=== PATIENT | female | born 1975 | race Caucasian/White ===

== ENCOUNTER → 2017-03-19 | Emergency (ER) | payer BC ==
[~2017-03-19] VITALS: Ht 162.6 cm; Wt 68.9 kg
[~2017-03-19] MED LIST: CIPRO500 MG PO; CLINDAMYCIN HC150 MG PO; HYDROXYZINE HCL25 MG PO; IBUPROFEN 600 MG TAB PO STA; IBUPROFEN200 MG PO; PROZAC20 MG; ULTRAM50 MG PO; [UNRECOGNIZED DRUG - OTHER] PO
== END | disposition home or self-care (01) ==
LOC: FSED 22:40
DX: M54.2 Cervicalgia (principal); S16.1XXA Strain of muscle, fascia and tendon at neck level, initial encounter; M54.5 Low back pain; S39.012A Strain of muscle, fascia and tendon of lower back, initial encounter; M62.838 Other muscle spasm; V43.52XA Car driver injured in collision with other type car in traffic accident, initial encounter; Y92.488 Other paved roadways as the place of occurrence of the external cause
CPT/HCPCS: 99283

== ENCOUNTER 2017-04-20 14:44 | Inpatient (IN) | payer BC ==
[~2017-04-20] VITALS: Ht 162.6 cm; Wt 67.3 kg
[~2017-04-20 14:44] MED LIST changes: -CIPRO500 MG PO; -CLINDAMYCIN HC150 MG PO; -HYDROXYZINE HCL25 MG PO; -IBUPROFEN 600 MG TAB PO STA; -IBUPROFEN200 MG PO; -ULTRAM50 MG PO; -[UNRECOGNIZED DRUG - OTHER] PO
[2017-04-20] MEDS ORDERED: MORPHINE SULFATE 2 MG/ML SYR IV STA (15:21)
[2017-04-20] MEDS ORDERED: [UNRECOGNIZED DRUG - OTHER] PO (15:31)
[2017-04-20] MEDS ORDERED: IBUPROFEN200 MG PO (15:31)
[2017-04-20] MEDS ORDERED: ULTRAM50 MG PO (15:31)
[2017-04-20] MEDS ORDERED: CLINDAMYCIN HC150 MG PO (15:31)
[2017-04-20] MEDS ORDERED: HYDROXYZINE HCL25 MG PO (15:31)
[2017-04-20] MEDS ORDERED: SODIUM CHLORIDE 0.9% 1000ML 1,000 ML IV SCH (16:15)
[2017-04-20] MEDS ORDERED: CLINDAMYCIN 300MG 50 ML IV SCH (16:15)
[2017-04-20] MEDS ORDERED: KETOROLAC TROMETHAMINE 30 MG/ML VIAL IV STA (19:06)
[2017-04-20 21:22] VITALS: BP 143/73
[2017-04-20 21:24] VITALS: BP 143/73
[2017-04-20 21:39] VITALS: BP 143/73
[2017-04-21] VITALS (8 sets, daily range): BP systolic 101–146; BP diastolic 59–76
[2017-04-21] MEDS ORDERED: MORPHINE SULFATE 2 MG/ML SYR IV PRN (07:30)
[2017-04-21] MEDS ORDERED: LEVOFLOXACIN 500MG/D5W 100ML 100 ML IV SCH (07:30)
[2017-04-21] MEDS ORDERED: SODIUM CHLORIDE 0.9% 1000ML 1,000 ML IV ONE (07:45)
[2017-04-21 08:50] LABS: BASOPHILS % 0.3 % (0.0-1.0); EOSINOPHILS # (AUTO) 0.1 (0.0-0.4); EOSINOPHILS % 0.9 % (0.0-6.0); HEMATOCRIT 33.3 % (34.2-44.1); HEMOGLOBIN 11.4 g/dL (12.0-16.0); LYMPHOCYTES # (AUTO) 1.1 (1.0-3.2); LYMPHOCYTES % 11.6 % (18.0-39.1); MEAN CORPUSCULAR HEMOGLOBIN 31.3 pg (28-32); MEAN CORPUSCULAR HGB CONC 34.2 g/dL (31-35); MEAN CORPUSCULAR VOLUME 91.5 fL (81-99); MONOCYTES # (AUTO) 0.8 (0.2-0.8); MONOCYTES % 8.2 % (4.4-11.3); NEUTROPHILS # (AUTO) 7.3 (2.1-6.9); NEUTROPHILS % 78.8 % (38.7-80.0); PLATELET COUNT 230 x10e3/uL (140-360); RED BLOOD COUNT 3.64 x10e6/uL (3.6-5.1); RED CELL DISTRIBUTION WIDTH 12.1 % (11.7-14.4)
[2017-04-21 09:03] LABS: ALANINE AMINOTRANSFERASE 19 IU/L (0-55); ALBUMIN 2.9 g/dL (3.5-5.0); ALBUMIN/GLOBULIN RATIO 0.9 (0.8-2.0); ALKALINE PHOSPHATASE 45 IU/L (40-150); ANION GAP 12.1 mmol/L (8-16); BLOOD UREA NITROGEN 8 mg/dL (7-26); BUN/CREATININE RATIO 12 (6-25); CALCIUM 8.4 mg/dL (8.4-10.2); CARBON DIOXIDE 24 mmol/L (22-29); CHLORIDE 101 mmol/L (98-107); CREATININE, SERUM 0.68 mg/dL (0.57-1.11); EST GLOMERULAR FILTRATION RATE > 60 ML/MIN (60-); GLUCOSE 121 mg/dL (74-118); POTASSIUM 4.1 mmol/L (3.5-5.1); SODIUM 133 mmol/L (136-145)
[2017-04-21] MEDS: VANCOMYCIN 1GM/NS 250 ML 250 ML IV SCH ×2 (10:02→20:38)
[2017-04-21] MEDS: ACETAMINOPHEN 1000 MG/100 ML IV PRN (12:38)
[2017-04-21] MEDS: PIPER-TAZ 3.375 GM 50 ML IV SCH ×2 (13:04→17:31)
[2017-04-21] MEDS ORDERED: CLINDAMYCIN 300MG 50 ML IV SCH (14:00)
--- NOTE | 2017-04-21 17:20 | Consultation ---
DATE OF CONSULTATION: April 21, 2017 REASON FOR CONSULTATION: Abscess of tooth, infection of face. HISTORY OF PRESENT ILLNESS: This patient, who is a 41-year-old white female with history of hypothyroidism, history of endometriosis, history of anxiety, history of depression, has been having a problem with her tooth for the last week or so. She went to the 1st dentist who gave her oral antibiotic, but it was painful and getting progressively worse. She went to another dentist, and they were supposed to do an extraction a few days later, but there was so much infection she was given oral antibiotic. She went to bed yesterday and woke up, and there were significant swelling and redness in her face as well as drainage from inside the mouth. The patient came to the emergency room where she was admitted. The patient was on clindamycin and tramadol before she came here. PAST MEDICAL HISTORY: Hypothyroidism, anxiety and depression. PAST SURGICAL HISTORY: She denies. SOCIAL HISTORY: There is no smoking, drug abuse or alcohol abuse. FAMILY HISTORY: Noncontributory. REVIEW OF SYSTEMS HEENT: There is no headache, visual changes, hearing changes or hearing loss, but there is swelling of the right side of the face in the upper part. Also, there is tooth pain, which is severe. NECK: No complaints. JOINTS: There is no erythema or edema. SKIN: There is no rash, but there is hirsutism. PULMONARY: Negative. CARDIAC: Negative. PHYSICAL EXAMINATION GENERAL: She is currently alert and oriented, does not seem to be in acute distress. VITALS: Stable, currently afebrile. HEENT: She is not icteric. There are significant erythema and swelling of her face on the right side. She has poor dentition. There is swelling in the gum noted mainly in the upper lip. Patient was not able to open her mouth because of the pain and swelling. NECK: Supple. CHEST: Clear. COR: S1 and S2. No murmur. ABDOMEN: Soft. Bowel sounds are present. No tenderness. No hepatosplenomegaly. EXTREMITIES: No edema. SKIN: There is no rash. Hirsutism was noted. ALLERGIES: PENICILLIN, BUT SHE TOOK KEFLEX BEFORE AND SHE HAD NO PROBLEM. IMPRESSION: Cellulitis of the face secondary to tooth abscess. Failed oral antibiotic. Will put her on Zosyn and vancomycin. Discontinue clindamycin. Local heat pad. Will observe over the next 24 to 48 hours. She is aware that she needs tooth extraction, and she is planning on it once her infection gets better. We will see how she is going to do over the next 48 hours. Will follow with you. Job#: [id number]
[2017-04-22] VITALS (7 sets, daily range): BP systolic 103–131; BP diastolic 55–70
[2017-04-22] MEDS: PIPER-TAZ 3.375 GM 50 ML IV SCH ×4 (00:23→17:23)
[2017-04-22] MEDS: ACETAMINOPHEN 1000 MG/100 ML IV PRN (00:24)
[2017-04-22] MEDS ORDERED: SODIUM CHLORIDE 0.9% 250ML 250 ML ONE (09:00)
[2017-04-22] MEDS: VANCOMYCIN 1GM/NS 250 ML 250 ML IV SCH ×2 (09:03→21:00)
[2017-04-22] MEDS: HYDROXYZINE HCL 25 MG TAB PO SCH ×3 (12:44→17:39)
[2017-04-22] MEDS: TRAMADOL HCL 50 MG TAB PO PRN (12:44)
[2017-04-22] MEDS: IBUPROFEN 600 MG TAB PO SCH (15:40)
[2017-04-22] MEDS ORDERED: HYDROXYZINE HCL 25 MG TAB PO PRN (17:45)
[2017-04-22] MEDS ORDERED: ONDANSETRON HCL INJ 2 MG/ML VIAL IV PRN (18:00)
[2017-04-23] VITALS (7 sets, daily range): BP systolic 98–130; BP diastolic 57–70
[2017-04-23] MEDS ORDERED: SODIUM CHLORIDE 0.9% 250ML 250 ML IV PRN (00:15)
--- NOTE | 2017-04-23 00:21 | Progress Note ---
DATE: April 22, 2017 Ms. Meade is doing better. The swelling in the teeth and the jaw is getting better. She has no new complaints. PHYSICAL EXAMINATION VITAL SIGNS: Temperature 97.4, heart rate 72, respirations 18, blood pressure 126/69. She has no fever. Her T-max 101.3 at midnight. HEENT: She is normocephalic, not icteric. The swelling and the erythema on the left side of the jaw is getting better. NECK: Supple. No JVD. No lymphadenopathy or thyromegaly. CHEST: Clear bilaterally. COR: S1, S2. No murmur. ABDOMEN: Soft. Bowel sounds are present. No tenderness. EXTREMITIES: No edema. LABS: White count 9.25, hemoglobin 11. Her sodium 133, potassium 4.4, and creatinine 0.68. No cultures. IMPRESSION AND PLAN: Tooth abscess with face cellulitis and face abscess, seem to be getting better. Continue to drain . Continue with vancomycin, continue with Zosyn. Local heat pad. Will re-assess in the morning. Job#: [id number]
[2017-04-23] MEDS ORDERED: SODIUM CHLORIDE 0.9% 250ML 250 ML ONE (00:24)
[2017-04-23] MEDS: PIPER-TAZ 3.375 GM 50 ML IV SCH ×5 (00:40→23:55)
[2017-04-23] MEDS: VANCOMYCIN 1GM/NS 250 ML 250 ML IV SCH (07:42)
[2017-04-23] MEDS: THYROID 60 MG TAB PO SCH (08:38)
[2017-04-23] MEDS: FLUOXETINE HCL 20 MG CAP PO SCH (09:19)
[2017-04-23] MEDS: TRAMADOL HCL 50 MG TAB PO PRN (12:13)
[2017-04-23] MEDS: IBUPROFEN 600 MG TAB PO SCH (17:55)
[2017-04-23] MEDS: VANCOMYCIN HCL 1.25 GM in SODIUM CHLORIDE 0.9% 250ML 250 ML IV SCH (20:25)
[2017-04-24] VITALS (9 sets, daily range): BP systolic 99–123; BP diastolic 57–61
[2017-04-24] MEDS: PIPER-TAZ 3.375 GM 50 ML IV SCH ×4 (05:34→23:32)
[2017-04-24] MEDS ORDERED: SODIUM CHLORIDE 0.9% 250ML 250 ML ONE (09:27)
[2017-04-24] MEDS: THYROID 60 MG TAB PO SCH (09:29)
[2017-04-24] MEDS: VANCOMYCIN HCL 1.25 GM in SODIUM CHLORIDE 0.9% 250ML 250 ML IV SCH ×2 (09:29→20:08)
[2017-04-24] MEDS: FLUOXETINE HCL 20 MG CAP PO SCH (09:29)
[2017-04-24] MEDS: TRAMADOL HCL 50 MG TAB PO PRN (09:30)
--- NOTE | 2017-04-24 15:59 | Consultation ---
DATE OF CONSULTATION: April 23, 2017 HOSPITAL CONSULTATION HISTORY OF PRESENT ILLNESS: I discovered this 41-year-old woman on my and was not called for consultation. She presented to the emergency department with a progressive sore painful tooth and neck swelling, was found to have facial abscess/cellulitis of dental origin. Her hospital course was marked by slow progress after initiation of IV antibiotic therapy, had spontaneous drainage from the right lower jaw tooth. She reports she is able to open her mouth significantly better and overall has significantly less pain. Her history of present illness is reviewed in detail in the chart as above. Her past medical history and past surgical history are noncontributory. EXAMINATION: There is swelling in the neck, significantly worse on the right side. There is no palpable cervical adenopathy. There is no overlying skin changes. She has a 1 cm draining lesion in the right mandible. There is no palpable abscess formation. ASSESSMENT: Neck cellulitis of dental origin with no clinically identified drainable abscess, responding to current therapy. PLAN: No otolaryngology changes with therapy. Job#: [id number]
[2017-04-25 00:48] VITALS: BP 116/55
[2017-04-25 04:00] VITALS: BP 116/63
[2017-04-25] MEDS: PIPER-TAZ 3.375 GM 50 ML IV SCH (05:18)
[2017-04-25] MEDS ORDERED: CIPRO500 MG PO (06:22)
[2017-04-25 08:22] VITALS: BP 110/53
[2017-04-25 08:38] VITALS: BP 142/60
[2017-04-25] MEDS: THYROID 60 MG TAB PO SCH (08:38)
[2017-04-25] MEDS: FLUOXETINE HCL 20 MG CAP PO SCH (08:38)
[2017-04-25] MEDS: VANCOMYCIN HCL 1.25 GM in SODIUM CHLORIDE 0.9% 250ML 250 ML IV SCH (08:38)
== END 2017-04-25 12:12 | disposition home or self-care (01) | DRG 603 ==
LOC: FSED 14:44 → IMCU 20:40 → OBSVTOIN 04-22 05:43 → MED/SURG 04-22 10:59
PROVIDERS: ADMIT Internal Medicine; ATTEND Internal Medicine
DX: L02.01 Cutaneous abscess of face (principal); L02.11 Cutaneous abscess of neck; K04.7 Periapical abscess without sinus; E03.9 Hypothyroidism, unspecified; F41.8 Other specified anxiety disorders; K02.9 Dental caries, unspecified; Z88.0 Allergy status to penicillin
CPT/HCPCS: 36415; 80053; 80202; 85025; 99284; G0378; J1885; J1956; J2270; J2405; J2543; J3370; J3410; J7030; J7050

== ENCOUNTER 2017-08-18 11:46 | Emergency (ER) | payer BC ==
[~2017-08-18] VITALS: Ht 160 cm; Wt 72.6 kg
[~2017-08-18 11:46] MED LIST changes: +CIPRO500 MG PO; +CLINDAMYCIN HC150 MG PO; +HYDROXYZINE HCL25 MG PO; +IBUPROFEN200 MG PO; +ULTRAM50 MG PO; +[UNRECOGNIZED DRUG - OTHER] PO
== END 2017-08-18 12:35 | disposition home or self-care (01) ==
LOC: FSED 11:46
DX: L02.31 Cutaneous abscess of buttock (principal)
CPT/HCPCS: 99283

== ENCOUNTER 2020-06-12 19:10 | Emergency (ER) | payer BC ==
[~2020-06-12] VITALS: Ht 160 cm; Wt 78.0 kg
[2020-06-12] MEDS ORDERED: SODIUM CHLORIDE 0.9% 1000ML 1,000 ML IV STA (19:25)
[2020-06-12] MEDS ORDERED: KETOROLAC TROMETHAMINE 30 MG/ML VIAL IV ONE (19:30)
[2020-06-12] MEDS ORDERED: DIPHENHYDRAMINE HCL INJ 50 MG/ML VIAL IV ONE (19:30)
[2020-06-12] MEDS ORDERED: FAMOTIDINE 20 MG/2 ML VIAL IV ONE ×2 (19:30→20:04)
[2020-06-12] MEDS ORDERED: DEXAMETHASONE SOD PHOS INJ 4 MG/ML VIAL IV ONE (19:30)
[2020-06-12] MEDS ORDERED: PROMETHAZINE 25MG/ NS 50ML (IV) IV ONE (19:30)
[2020-06-12] MEDS ORDERED: FAMOTIDINE20 MG PO (19:33)
[2020-06-12] MEDS ORDERED: PROMETHAZINE HC25 M1 PO (19:33)
[2020-06-12] MEDS ORDERED: ESGIC 50-325-41 EACH PO (19:33)
[2020-06-12] MEDS ORDERED: DIPHENHYDRAMINE HCL INJ 50 MG/ML VIAL ONE (20:03)
[2020-06-12] MEDS ORDERED: KETOROLAC TROMETHAMINE 30 MG/ML VIAL ONE (20:03)
[2020-06-12] MEDS ORDERED: SODIUM CHLORIDE 0.9% 1000ML 1,000 ML ONE (20:03)
[2020-06-12] MEDS ORDERED: DEXAMETHASONE SOD PHOS INJ 4 MG/ML VIAL ONE (20:03)
[2020-06-12] MEDS ORDERED: PROMETHAZINE HCL (IM) 25 MG/ML VIAL IM ONE (20:19)
[2020-06-12] MEDS ORDERED: SODIUM CHLORIDE 0.9% 50ML 50 ML ONE (20:19)
[2020-06-12 21:05] VITALS: BP 116/73
== END 2020-06-12 21:05 | disposition home or self-care (01) ==
LOC: FSED 19:25
DX: R11.2 Nausea with vomiting, unspecified (principal); R10.9 Unspecified abdominal pain; K52.9 Noninfective gastroenteritis and colitis, unspecified; E86.0 Dehydration; F41.9 Anxiety disorder, unspecified; E03.9 Hypothyroidism, unspecified; F42.9 Obsessive-compulsive disorder, unspecified
CPT/HCPCS: 80053; 81003; 85025; 96374; 96375; 96376; 99283; J1100; J1200; J1885; J2550; J7030

== ENCOUNTER 2020-07-24 20:47 | Emergency (ER) | payer BC ==
[~2020-07-24] VITALS: Ht 160 cm; Wt 81.6 kg
[~2020-07-24 20:47] MED LIST changes: +ESGIC 50-325-41 EACH PO; +FAMOTIDINE20 MG PO; +PROMETHAZINE HC25 M1 PO
[2020-07-24] MEDS ORDERED: FLUCONAZOLE100 MG PO (21:23)
[2020-07-24 21:40] VITALS: BP 151/82
== END 2020-07-24 21:40 | disposition home or self-care (01) ==
LOC: FSED 21:18
DX: N89.8 Other specified noninflammatory disorders of vagina (principal); B37.3 Candidiasis of vulva and vagina; E03.9 Hypothyroidism, unspecified; F41.9 Anxiety disorder, unspecified; F42.9 Obsessive-compulsive disorder, unspecified
CPT/HCPCS: 81003; 99283

== ENCOUNTER 2021-10-18 03:26 | Emergency (ER) | payer BC ==
[~2021-10-18] VITALS: Ht 160 cm; Wt 81.6 kg
[~2021-10-18 03:26] MED LIST changes: +FLUCONAZOLE100 MG PO
[2021-10-18] MEDS ORDERED: ONDANSETRON HCL 4 MG ORAL DISINTEGRATING TAB PO ONE (03:30)
[2021-10-18] MEDS ORDERED: ONDANSETRON HCL 4 MG ORAL DISINTEGRATING TAB ONE (03:42)
== END 2021-10-18 04:25 | disposition home or self-care (01) ==
LOC: ER 03:31
DX: S06.0X0A Concussion without loss of consciousness, initial encounter (principal); R51.9 Headache, unspecified; R11.2 Nausea with vomiting, unspecified; W22.09XA Striking against other stationary object, initial encounter; Y99.0 Civilian activity done for income or pay; E03.9 Hypothyroidism, unspecified; F41.9 Anxiety disorder, unspecified; F32.A Depression, unspecified
CPT/HCPCS: 70450; 99283; Q0162